=== PATIENT | female | born 1950 | race Caucasian/White ===

== ENCOUNTER 2016-07-29 17:30 | Inpatient (IN) | payer MEDICARE, OTHER ==
[~2016-07-29] VITALS: Ht 160 cm; Wt 64.9 kg
[~2016-07-29 17:30] MED LIST: ADVAIR 500-501 EACH INH; ATROVENT INH S2.5 ML INH; CEFDINIR300 MG PO; DALIRESP 500500 MCG PO; HYDROCODON-ACE1 EAC6 PO; LOPRESSOR 25 MG25 MG PO; MEDROL DOSEPAK 24 MG PO; PREDNISONE 5 MG5 MG PO; PRILOSEC OTC20 MG PO; PROVENTIL HFA6.7 GM INH; SPIRIVA HANDIH18 MCG INH; THEO-DUR 300 M300 MG PO; VALIUM 5 MG TAB5 MG PO; VENTOLIN/PROVE0.5 ML INH
[2016-07-29 18:17] LABS: HEMOGLOBIN 14.1 gm/dl (12.3-15.3); RED BLOOD COUNT 4.97 M/UL (4.00-5.10); WHITE BLOOD COUNT 11.2 K/UL (4.5-11.0)
[2016-07-29 18:45] LABS: BUN/CREATININE RATIO 19 (0-10)
[2016-07-30 08:20] LABS: BUN/CREATININE RATIO 25 (0-10)
[2016-07-30 10:43] LABS: BORDETELLA PERTUSSIS Not Detected (Negative); CHLAMYDOPHLA PNEUMONIAE Not Detected (Negative); CORONAVIRUS HKU1 Not Detected (Negative); CORONAVIRUS NL63 Not Detected (Negative); CORONAVIRUS OC43 Not Detected (Negative); CORONOAVIRUS 229E Not Detected (Negative); HUMAN METAPNEUMOVIRUS Not Detected (Negative); HUMAN RHINOVIRUS/ENTEROVIRUS Not Detected (Negative); INFLUENZA A Not Detected (Negative); INFLUENZA A H-1-2009 Not Detected (Negative); INFLUENZA A H1 Not Detected (Negative); INFLUENZA A H3 Not Detected (Negative); INFLUENZA B Not Detected (Negative); MYCOPLASMA PNEUMONIAE Not Detected (Negative); PARAINFLUENZA VIRUS 1 Not Detected (Negative); PARAINFLUENZA VIRUS 2 Not Detected (Negative); PARAINFLUENZA VIRUS 3 Not Detected (Negative); PARAINFLUENZA VIRUS 4 Not Detected (Negative); RESPIRATORY SYNCYTIAL VIRUS Not Detected (Negative)
[2016-07-31 06:51] LABS: HEMOGLOBIN 12.4 gm/dl (12.3-15.3)
[2016-07-31 06:56] LABS: RED BLOOD COUNT 4.42 M/UL (4.00-5.10); WHITE BLOOD COUNT 15.6 K/UL (4.5-11.0)
[2016-07-31 07:15] LABS: BUN/CREATININE RATIO 34 (0-10)
[2016-08-01 06:23] LABS: HEMOGLOBIN 11.8 gm/dl (12.3-15.3); RED BLOOD COUNT 4.21 M/UL (4.00-5.10); WHITE BLOOD COUNT 16.7 K/UL (4.5-11.0)
[2016-08-01 06:33] LABS: BUN/CREATININE RATIO 27 (0-10)
[2016-08-03 05:27] LABS: HEMOGLOBIN 12.9 gm/dl (12.3-15.3); RED BLOOD COUNT 4.54 M/UL (4.00-5.10); WHITE BLOOD COUNT 12.8 K/UL (4.5-11.0)
[2016-08-03 05:44] LABS: BUN/CREATININE RATIO 25 (0-10)
[2016-08-04] MEDS ORDERED: CEFUROXIME500 MG PO (17:50)
== END 2016-08-04 18:30 | disposition home or self-care (01) | DRG 189 ==
LOC: ER1 17:30 → ZEROF 07-30 05:52 → M/S 07-30 05:52
PROVIDERS: Emergency Medicine; Family Medicine; Internal Medicine; Physician Assistant; ADMIT Family Medicine
PROC: 5A09357 Assistance with Respiratory Ventilation, Less than 24 Consecutive Hours, Continuous Positive Airway Pressure (ICD-10-PCS; principal; 2016-07-31)
DX: J96.22 Acute and chronic respiratory failure with hypercapnia (principal); J44.1 Chronic obstructive pulmonary disease with (acute) exacerbation; J44.0 Chronic obstructive pulmonary disease with (acute) lower respiratory infection; J21.9 Acute bronchiolitis, unspecified; F11.20 Opioid dependence, uncomplicated; J96.21 Acute and chronic respiratory failure with hypoxia; E87.5 Hyperkalemia; I27.2 Other secondary pulmonary hypertension; G40.909 Epilepsy, unspecified, not intractable, without status epilepticus; I10 Essential (primary) hypertension; K21.9 Gastro-esophageal reflux disease without esophagitis; M51.26 Other intervertebral disc displacement, lumbar region; G47.33 Obstructive sleep apnea (adult) (pediatric); D72.829 Elevated white blood cell count, unspecified; T38.0X5A Adverse effect of glucocorticoids and synthetic analogues, initial encounter; M19.90 Unspecified osteoarthritis, unspecified site; G89.29 Other chronic pain; F41.9 Anxiety disorder, unspecified; Z87.891 Personal history of nicotine dependence; Z99.81 Dependence on supplemental oxygen; Z79.52 Long term (current) use of systemic steroids; Z79.51 Long term (current) use of inhaled steroids; Z79.899 Other long term (current) drug therapy; Z88.3 Allergy status to other anti-infective agents; Z88.5 Allergy status to narcotic agent; Z96.642 Presence of left artificial hip joint; Z98.890 Other specified postprocedural states; Z82.49 Family history of ischemic heart disease and other diseases of the circulatory system; Z83.3 Family history of diabetes mellitus; Z83.6 Family history of other diseases of the respiratory system
CPT/HCPCS: 36415; 36600; 71020; 80048; 80053; 82550; 82553; 82803; 83735; 83874; 83880; 84484; 85025; 85027; 85379; 87040; 87070; 87205; 87486; 87581; 87633; 87798; 93005; 94640; 94660; 94664; 96365; 96375; 96376; 99285; J0696; J1650; J2405; J2920; J2930; J7050